=== PATIENT | female | born 1995 | race Caucasian/White ===

== ENCOUNTER 2017-01-05 13:18 | Emergency (ER) | payer OTHER ==
--- NOTE | 2017-01-05 14:15 | ED CLINICAL REPORT ---
Clinical Report - Physicians/Mid Levels [facility] [address] [place] [address] 01/05/2017 13:23 Patient: MICHAEL NOEL Time Seen: 13:40 Casa 2016. Arrived- By private vehicle. Historian- patient. HISTORY OF PRESENT ILLNESS Chief Complaint: DIARRHEA. This started 2 - 3 days and is still present. No nausea, vomiting, black stools, bloody stools or abdominal pain. She has had diarrhea. Has not recently been camping. (patient works at [employer], and, he comes in contact with animals, and possible exposure to Giardia, as well as from a coworker, patient has been having brown diarrhea over the last 2 days. Denies abdominal pain, fevers. Denies any foreign travel or any antibiotic use. Patient with history of lactose intolerance, and had a significant fetus previously and had diarrhea after that, however her diarrhea from these incidents only last usually 24 hours, the diarrhea has persisted.). REVIEW OF SYSTEMS No fever or muscle aches. All systems otherwise negative, except as recorded above. PAST HISTORY Problems: Sick Contact. Migraine Headache. Additional Surgeries: no known surgeries. Medications: Topamax Oral (Tablet 25 mg), daily (takes the lowest dose). Allergies: No Known Drug Allergy. SOCIAL HISTORY Never smoker. No alcohol use. PHYSICAL EXAM Appearance: Alert. ENT: Ears normal. Neck: Normal inspection. CVS: Normal heart rate and rhythm. Heart sounds normal. Respiratory: No respiratory distress. Abdomen: Soft and nontender. Back: Normal inspection. Skin: Skin warm. Normal skin color. Neuro: Oriented X 3. No motor deficit. PROGRESS AND PROCEDURES Course of Care: patient here in the emergency department with no signs of acute distress, negative exam, she has been having diarrhea. Recent exposures to animals, who frequently carry Giardia, and outpatient with diarrhea, otherwise asymptomatic with no fevers abdominal pain. Patient appears euvolemic. Does not require any further workup in the ER, stool sample signs, would like to start treatment the sign, which I find recently given recent exposure, and a coworker with similar symptoms as well. Patient is stable. Physical exam findings are unchanged. Symptoms better. Patient/family counseled. Disposition: Discharged. Condition: good. CLINICAL IMPRESSION Diarrhea INSTRUCTIONS Drink plenty of fluids. Warnings: Further evaluation is necessary. Prescription Medications: Metronidazole 500 mg: Take 1 tablet orally every 12 hours for 7 days. No refill. Follow-up: Follow up with your doctor in three days. (Electronically signed by Jocelyn Maynard P.A.-C 01/05/2017 15:00)
--- NOTE | 2017-01-05 14:15 | ED ORDER SUMMARY ---
..... Patient: MICHAEL NOEL OrderSheet [facility] VisitID: [id number] [address] [place] [address] 21y, F Registration Date/Time: 01/05/2017 ORDER SHEET Weight: 65.7 kg (stated) Allergies: No Known Drug Allergy GENERAL ORDERS: Ova & Parasite Exam Urgent (14:14 01/05/2017 Vandana P.A.-C) ([facility] 14:15 Faraz) (14:26 Faraz) MEDICATION ORDERS: Metronidazole PO 500 mg (NOW) (14:13 01/05/2017 Vandana Landon.A.-C) (14:39 Anastasiia Maharaj) IV FLUIDS: ORDER SHEET NOTES: [Electronically signed by Sandra Negrete R.N. (14:52 01/05/2017)] [Electronically signed by Jocelyn Maynrad-Nicolas (15:00 01/05/2017)] [Electronically locked/signed by Sandra Negrete R.N. (14:52 01/05/2017)]
--- NOTE | 2017-01-05 14:15 | ED NURSING NOTES ---
Clinical Report - Nurses [facility] [address] [place] [address] 01/05/2017 13:23 Patient: MICHAEL NOEL TRIAGE Triage time 13:50 Casa 2016. Acuity: LEVEL 3. Chief Complaint: DIARRHEA. Alert. No acute distress. --14: Sandra Negrete R.N. 13:54 01/05/17. BP: 106/64. HR: 80. RR: 18. O2 saturation: 100%. Temp: 97.7 F. Pain level now 0/10. --14: Sandra Negrete R.N. Weight: 65.7 kg stated. Height/Length: 59 inches Per Patient. BMI: 29.3. --13:52 Sandra Negrete R.N. Medications Topamax Oral (Tablet 25 mg), daily (takes the lowest dose). --13:59 Sandra Negrete R.N. Medication/allergy information source: the patient. --14: Sandra Negrete R.N. Allergies No Known Drug Allergy. --13:59 Sandra Negrete R.N. History Arrived by private vehicle. Historian: patient. Onset. (since January 03). She has had diarrhea. No nausea or vomiting. Last oral intake by patient was lunch today. Treatment SUPERVISORY HISTORIAN: None. PAST MEDICAL HX: Immunizations: up-to-date. Last normal menstrual period- December 02. No contraception. SURGERY HX: No history of previous surgery. SOCIAL HX: Never smoker. No alcohol use or drug use. No recent travel. She has had contact with a sick coworker. Symptoms of the sick contact include diarrhea. (while working at the [employer]). They have had similar symptoms. No infectious disease exposure. NUTRITIONAL RISK ASSESSMENT: The nutritional risk assessment revealed no deficiencies. FUNCTIONAL ASSESSMENT: Functional assessment: no impairments noted. LEARNING NEEDS ASSESSMENT: The learning needs assessment revealed no barriers. SKIN INTEGRITY ASSESSMENT: Skin integrity risk assessment completed. No skin integrity risk identified. --14: Sandra Negrete R.N. PROBLEMS: Migraine Headache. --14:00 Sandra Negrete R.N. Interventions ID band on patient. To room. --14:01 Sandra Negrete R.N. PHYSICAL ASSESSMENT Ambulatory to room. GENERAL / NEURO / PSYCH: Alert. Oriented X 4. Appears in no acute distress. RESPIRATORY: Respirations not labored. CVS: Capillary refill less than 2 seconds. GI / : The patient has diarrhea. ( ribbon like stool, soft, brown in color,). SKIN: Skin is warm and dry. --14:51 Sandra Negrete R.N. NURSING PROGRESS NOTES Reassurance given. Call light placed in reach. ( Provider at bedside. Stool collected, pt had to use the bathroom on arrival. O/P collected and sent to lab.). --14:02 Sandra Negrete R.N. 14:39 01/05/2017 Metronidazole PO 500 mg given. Allergies verified and confirmed 5 rights. --14:39 Sandra Negrete R.N. DISPOSITION / DISCHARGE Departure time: 14:45 Jan 05 2017. Condition at departure: improved and stable. No learning barriers present. Reviewed medication(s). Patient verbalized understanding. Written instructions provided in Yi. The patient was discharged by the physician regional administrative assistant. She was discharged home. She left the Emergency Department ambulatory and via private vehicle. Patient driving. --14:52 Sandra Negrete R.N. Locked/Released at 01/05/2017 14:52 by Sandra Negrete R.N.
--- NOTE | 2017-01-05 14:15 | ED NURSING NOTES ---
Clinical Report - Nurses [facility] [address] [place] [address] 01/05/2017 13:23 Patient: MICHAEL NOEL TRIAGE Triage time 13:50 Casa 2016. Acuity: LEVEL 3. Chief Complaint: DIARRHEA. Alert. No acute distress. --14: Sandra Negrete R.N. 13:54 01/05/17. BP: 106/64. HR: 80. RR: 18. O2 saturation: 100%. Temp: 97.7 F. Pain level now 0/10. --14: Sandra Negrete R.N. Weight: 65.7 kg stated. Height/Length: 59 inches Per Patient. BMI: 29.3. --13:52 Sandra Negrete R.N. Medications Topamax Oral (Tablet 25 mg), daily (takes the lowest dose). --13:59 Sandra Negrete R.N. Medication/allergy information source: the patient. --14: Sandra Negrete R.N. Allergies No Known Drug Allergy. --13:59 Sandra Negrete R.N. History Arrived by private vehicle. Historian: patient. Onset. (since January 03). She has had diarrhea. No nausea or vomiting. Last oral intake by patient was lunch today. Treatment TOUR CONDUCTOR: None. PAST MEDICAL HX: Immunizations: up-to-date. Last normal menstrual period- December 02. No contraception. SURGERY HX: No history of previous surgery. SOCIAL HX: Never smoker. No alcohol use or drug use. No recent travel. She has had contact with a sick coworker. Symptoms of the sick contact include diarrhea. (while working at the [employer]). They have had similar symptoms. No infectious disease exposure. NUTRITIONAL RISK ASSESSMENT: The nutritional risk assessment revealed no deficiencies. FUNCTIONAL ASSESSMENT: Functional assessment: no impairments noted. LEARNING NEEDS ASSESSMENT: The learning needs assessment revealed no barriers. SKIN INTEGRITY ASSESSMENT: Skin integrity risk assessment completed. No skin integrity risk identified. --14: Sandra Negrete R.N. PROBLEMS: Migraine Headache. --14:00 Sandra Negrete R.N. Interventions ID band on patient. To room. --14:01 Sandra Negrete R.N. PHYSICAL ASSESSMENT Ambulatory to room. GENERAL / NEURO / PSYCH: Alert. Oriented X 4. Appears in no acute distress. RESPIRATORY: Respirations not labored. CVS: Capillary refill less than 2 seconds. GI / : The patient has diarrhea. ( ribbon like stool, soft, brown in color,). SKIN: Skin is warm and dry. --14:51 Sandra Negrete R.N. NURSING PROGRESS NOTES Reassurance given. Call light placed in reach. ( Provider at bedside. Stool collected, pt had to use the bathroom on arrival. O/P collected and sent to lab.). --14:02 Sandra Negrete R.N. 14:39 01/05/2017 Metronidazole PO 500 mg given. Allergies verified and confirmed 5 rights. --14:39 Sandra Negrete R.N. DISPOSITION / DISCHARGE Departure time: 14:45 Jan 05 2017. Condition at departure: improved and stable. No learning barriers present. Reviewed medication(s). Patient verbalized understanding. Written instructions provided in Slovenian. The patient was discharged by the physician assistant project engineer. She was discharged home. She left the Emergency Department ambulatory and via private vehicle. Patient driving. --14:52 Sandra Negrete R.N. Locked/Released at 01/05/2017 14:52 by Sandra Negrete R.N.
--- NOTE | 2017-01-05 14:15 | ED CLINICAL REPORT ---
Clinical Report - Physicians/Mid Levels [facility] [address] [place] [address] 01/05/2017 13:23 Patient: MICHAEL NOEL Time Seen: 13:40 Casa 2016. Arrived- By private vehicle. Historian- patient. HISTORY OF PRESENT ILLNESS Chief Complaint: DIARRHEA. This started 2 - 3 days and is still present. No nausea, vomiting, black stools, bloody stools or abdominal pain. She has had diarrhea. Has not recently been camping. (patient works at [employer], and, he comes in contact with animals, and possible exposure to Giardia, as well as from a coworker, patient has been having brown diarrhea over the last 2 days. Denies abdominal pain, fevers. Denies any foreign travel or any antibiotic use. Patient with history of lactose intolerance, and had a significant fetus previously and had diarrhea after that, however her diarrhea from these incidents only last usually 24 hours, the diarrhea has persisted.). REVIEW OF SYSTEMS No fever or muscle aches. All systems otherwise negative, except as recorded above. PAST HISTORY Problems: Sick Contact. Migraine Headache. Additional Surgeries: no known surgeries. Medications: Topamax Oral (Tablet 25 mg), daily (takes the lowest dose). Allergies: No Known Drug Allergy. SOCIAL HISTORY Never smoker. No alcohol use. PHYSICAL EXAM Appearance: Alert. ENT: Ears normal. Neck: Normal inspection. CVS: Normal heart rate and rhythm. Heart sounds normal. Respiratory: No respiratory distress. Abdomen: Soft and nontender. Back: Normal inspection. Skin: Skin warm. Normal skin color. Neuro: Oriented X 3. No motor deficit. PROGRESS AND PROCEDURES Course of Care: patient here in the emergency department with no signs of acute distress, negative exam, she has been having diarrhea. Recent exposures to animals, who frequently carry Giardia, and outpatient with diarrhea, otherwise asymptomatic with no fevers abdominal pain. Patient appears euvolemic. Does not require any further workup in the ER, stool sample signs, would like to start treatment the sign, which I find recently given recent exposure, and a coworker with similar symptoms as well. Patient is stable. Physical exam findings are unchanged. Symptoms better. Patient/family counseled. Disposition: Discharged. Condition: good. CLINICAL IMPRESSION Diarrhea INSTRUCTIONS Drink plenty of fluids. Warnings: Further evaluation is necessary. Prescription Medications: Metronidazole 500 mg: Take 1 tablet orally every 12 hours for 7 days. No refill. Follow-up: Follow up with your doctor in three days. (Electronically signed by Jocelyn Maynard P.A.-C 01/05/2017 15:00)
--- NOTE | 2017-01-05 14:15 | ED ORDER SUMMARY ---
..... Patient: MICHAEL NOEL OrderSheet [facility] VisitID: [id number] [address] [place] [address] 21y, F Registration Date/Time: 01/05/2017 ORDER SHEET Weight: 65.7 kg (stated) Allergies: No Known Drug Allergy GENERAL ORDERS: Ova & Parasite Exam Urgent (14:14 01/05/2017 Vandana P.A.-C) ([facility] 14:15 Faraz) (14:26 Faraz) MEDICATION ORDERS: Metronidazole PO 500 mg (NOW) (14:13 01/05/2017 Vandana Landon.A.-C) (14:39 Anastasiia Maharaj) IV FLUIDS: ORDER SHEET NOTES: [Electronically signed by Sandra Negrete R.N. (14:52 01/05/2017)] [Electronically signed by Jocelyn Maynard-Nicolas (15:00 01/05/2017)] [Electronically locked/signed by Sandra Negrete R.N. (14:52 01/05/2017)]
--- NOTE | 2017-01-05 15:00 | ED MED RECONCILIATION SUMMARY ---
Patient: MICHAEL NOEL Medication Reconciliation Report [facility] VisitID: [id number] [address] [place] [address] 21y, F Registration Date/Time: 01/05/2017 Weight: 65.7 kg Height/Length: 59 in. BMI: 29.3 ALLERGIES: No Known Drug Allergy The patient's Home Medications are listed below: THE FOLLOWING MEDICATIONS NEED TO BE RECONCILED: Topamax Oral (25 mg), daily, takes the lowest dose The source(s) of the original Home Medication information: patient The following Medications were given to the patient in the Emergency Department: Metronidazole [PO] PO 500 mg, administered: 01/05/2017 2:39:00 PM The following Medications were prescribed to the patient: Metronidazole 500 mg: Take 1 tablet orally every 12 hours for 7 days. No refill. -- Jocelyn Maynard PHaiderARaaftC
--- NOTE | 2017-01-05 15:00 | ED DISCHARGE INSTRUCTIONS ---
Patient: MICHAEL NOEL General Instructions [facility] VisitID: [id number] [place] [address] 21y, F Registration Date/Time: 01/05/2017 Diarrhea INSTRUCTIONS Drink plenty of fluids. Warnings: Further evaluation is necessary. Prescription Medications: Metronidazole 500 mg: Take 1 tablet orally every 12 hours for 7 days. No refill. Follow-up: Follow up with your doctor in three days. ADDITIONAL INFORMATION Diarrhea, Uncertain Cause (Adult, Report Pending) Diarrhea has several possible causes. Commonstomach fluis caused by a virus. Food poisoning, bacteria or parasites are other causes for diarrhea. Only diarrhea caused by bacteria or parasites requires treatment with an antibiotic. Diarrhea from a virus or food poisoning improves with simple home treatment. A stool sample is needed to make the diagnosis of an infection with bacteria or parasites. Up to three stool specimens may be required to diagnose This may take up to two days to get the result. It may be necessary to wait until the stool test is complete to make the diagnosis and select the best antibiotic to prescribe. Home Care: If symptoms are severe, rest at home for the next 24 hours or until you are feeling better. You may use acetaminophen (Tylenol) or ibuprofen (Motrin, Advil) to control fever, unless another medicine was prescribed. [NOTE: If you have chronic liver or kidney disease or ever had a stomach ulcer or GI bleeding, talk with your doctor before using these medicines.] (Aspirin should never be used in anyone under 18 years of age who is ill with a fever. It may cause severe liver damage.) Avoid tobacco, caffeine and alcohol, which may worsen your symptoms. If anti-diarrhea medicine was prescribed, take this only as directed. Sometimes anti-diarrhea medicine can make your condition worse if the cause is an infectious diarrhea. Therefore, anti-diarrhea medicine should not be taken for this condition unless advised by your doctor. During The First 12-24 Hours follow the diet below: BEVERAGES: Sport drinks like Gatorade, soft drinks without caffeine; rebekah veto, mineral water (plain or flavored), decaffeinated tea and coffee. SOUPS: Clear broth, consomm and bouillon DESSERTS: Plain gelatin (Jell-O), popsicles and fruit juice bars. During The Next 24 Hours you may add the following to the above: Hot cereal, plain toast, bread, rolls, crackers Plain noodles, rice, mashed potatoes, chicken noodle or rice soup Unsweetened canned fruit (avoid pineapple), bananas Limit fat intake to less than 15 grams per day by avoiding margarine, butter, oils, mayonnaise, sauces, gravies, fried foods, peanut butter, meat, poultry and fish. Limit fiber; avoid raw or cooked vegetables, fresh fruits (except bananas) and bran cereals. Limit caffeine and chocolate. No spices or seasonings except salt. During The Next 24 Hours Gradually resume a normal diet, as you feel better and your symptoms lessen. Follow Up with your doctor or as advised if you are not improving over the next two days. If you were asked to bring a specimen from home, bring the sample on the day of collection. You may call in 2 days (or as directed) for the results. Get Prompt Medical Attention if any of the following occur: Increasing abdominal pain or constant lower right abdominal pain Continued vomiting (unable to keep liquids down) Frequent diarrhea (more than 5 times a day) Blood in vomit or stool (black or red color) Reduced oral intake Dark urine, reduced urine output Weakness, dizziness, fainting Drowsiness, confusion, stiff neck or seizure Fever of 100.4F (38C) oral or higher, not better with fever medication New rash You have been given the following additional information: Diarrhea, Unk Cause (Adult) Report Pendg (Electronically signed by Jocelyn Maynard P.A.-C 01/05/2017 15:00)
--- NOTE | 2017-01-05 15:00 | ED MAR SUMMARY ---
..... Medication Administration Record [facility] [address] [place] [address] Patient: MICHAEL NOEL Visit ID: [id number] 21y, F Weight: 65.7 kg Height/Length: 59 in BMI: 29.3 ALLERGIES: No Known Drug Allergy Given 14:39 01/05/2017 Sandra Negrete R.N. Medication Administered: METRONIDAZOLE [PO], Dose: 500 mg PO. Medication Ordered: Metronidazole PO 500 mg (NOW).
--- NOTE | 2017-01-05 15:00 | ED MED RECONCILIATION SUMMARY ---
Patient: MICHAEL NOEL Medication Reconciliation Report [facility] VisitID: [id number] [address] [place] [address] 21y, F Registration Date/Time: 01/05/2017 Weight: 65.7 kg Height/Length: 59 in. BMI: 29.3 ALLERGIES: No Known Drug Allergy The patient's Home Medications are listed below: THE FOLLOWING MEDICATIONS NEED TO BE RECONCILED: Topamax Oral (25 mg), daily, takes the lowest dose The source(s) of the original Home Medication information: patient The following Medications were given to the patient in the Emergency Department: Metronidazole [PO] PO 500 mg, administered: 01/05/2017 2:39:00 PM The following Medications were prescribed to the patient: Metronidazole 500 mg: Take 1 tablet orally every 12 hours for 7 days. No refill. -- Jocelyn Maynard PHaiderARafatC
--- NOTE | 2017-01-05 15:00 | ED MAR SUMMARY ---
..... Medication Administration Record [facility] [address] [place] [address] Patient: MICHAEL NOEL Visit ID: [id number] 21y, F Weight: 65.7 kg Height/Length: 59 in BMI: 29.3 ALLERGIES: No Known Drug Allergy Given 14:39 01/05/2017 Sandra Negrete R.N. Medication Administered: METRONIDAZOLE [PO], Dose: 500 mg PO. Medication Ordered: Metronidazole PO 500 mg (NOW).
== END 2017-01-05 14:45 | disposition home or self-care (01) ==
LOC: ED SRH 13:18
DX: R19.7 Diarrhea, unspecified (principal); Z20.09 Contact with and (suspected) exposure to other intestinal infectious diseases
CPT/HCPCS: 90124